=== PATIENT | female | born 1950 | race Caucasian/White ===

== ENCOUNTER 2016-12-06 07:09 | Emergency (ER) | payer OTHER ==
--- NOTE | 2016-12-06 09:12 | C.PDOC ---
History Of Present Illness 65 yr old female presents to the ER, s/p trip and fall. Patient states she landed on the right knee and right face. Patient reports she is on Xarelto. Patient denies symptoms prior fall, LOC, vision changes, nausea, vomiting, headache, dizziness, weakness or numbness. 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 Constitutional: Positive for: Other ((+) Right face pain ) Eyes: Negative for: Vision Change Gastrointestinal: Negative for: Nausea, Vomiting Musculoskeletal: Positive for: Other ((+) Right knee pain. ) Neurological: Negative for: Weakness, Numbness, Headache, Dizziness Physical Exam - Physical Exam Appears: Non-toxic, No Acute Distress Skin: Warm, Dry, No Rash Head: Atraumatic, Normacephalic Eye(s): bilateral: PERRL, EOMI, right: Other (Small hematoma above the right eye. ), left: Normal Inspection Nose: Normal Oral Mucosa: Moist Neck: Normal, Normal ROM, Supple Chest: Symmetrical, No Tenderness Cardiovascular: Rhythm Regular, No Murmur Respiratory: Normal Breath Sounds, No Rales, No Rhonchi, No Wheezing Extremity: No Calf Tenderness, Capillary Refill (<2), Other ((+) Midline surgical scar over bilateral knees. Point tenderness to the anterior aspect of the right knee. ) Pulses: Left Dorsalis Pedis: Normal, Right Dorsalis Pedis: Normal Neurological/Psych: Oriented x3, Normal Speech, Normal Motor ED Course And Treatment - Other Rad X-Ray - Right Knee X-Ray: Viewed By Me, Read By Radiologist Interpretation: Right knee three views. History: Injury. Comparison: None available. Findings: Status post right total knee arthroplasty with patellar resurfacing. Narrowing at the patellofemoral compartment with some osteophytosis noted at the inferior posterior patella. Few soft tissue calcifications noted at the anterior aspect of the proximal tibia. Small knee joint effusion. Osteophytosis noted at the lateral proximal tibia as well as some mild productive change at the lateral femoral condyle. Impression: Status post right total knee arthroplasty with patellar resurfacing. Narrowing at the patellofemoral compartment with some osteophytosis noted at the inferior posterior patella. Few soft tissue calcifications noted at the anterior aspect of the proximal tibia. Small knee joint effusion. Osteophytosis noted at the lateral proximal tibia as well as some mild productive change at the lateral femoral condyle. If pain persists, consider MRI. - CT Scan/US CT - Head Other Rad Studies (CT/US): Read By Radiologist, Radiology Report Reviewed CT/US Interpretation: PROCEDURE: CT HEAD WITHOUT CONTRAST. HISTORY: Fall. Trauma. COMPARISON: None available. TECHNIQUE: Axial computed tomography images were obtained through the head/brain without intravenous contrast. Radiation dose: Total exam DLP = 903 mGy-cm. This CT exam was performed using one or more of the following dose reduction techniques: Automated exposure control, adjustment of the mA and/or kV according to patient size, and/or use of iterative reconstruction technique. FINDINGS: HEMORRHAGE: No intracranial hemorrhage. Small focus of increased attenuation seen within the right frontal lobe on series 2, image 15 likely represents volume averaging with the adjacent cranium. Punctate radiopaque focus seen within the right frontal lobe on series 4, image 30 may represent a parenchymal calcification. Additional probable parenchymal calcification seen within the cerebellum on series 4, image 19. BRAIN: No mass effect or edema. Scattered focal lucencies in the subcortical and periventricular white matter suggestive for chronic microvascular ischemic change. Punctate calcification along the anterior falx as well as within the right basal ganglia. VENTRICLES: Unremarkable. No hydrocephalus. CALVARIUM: Question left nasal bone deformity. Clinical correlation. PARANASAL SINUSES: Unremarkable as visualized. No significant inflammatory changes. MASTOID AIR CELLS: Unremarkable as visualized. No inflammatory changes. OTHER FINDINGS: None. IMPRESSION: Chronic microvascular ischemic change. Question left nasal bone deformity. Additional findings as above. If symptoms persists, consider further evaluation with MRI. CT - Orbits Other Rad Studies (CT/US): Read By Radiologist, Radiology Report Reviewed CT/US Interpretation: CT orbits. History: Trauma. Comparison: None available. Technique: Multi-echo multiplanar sequences were performed through the orbits without the use of intravenous contrast. Subsequently, sagittal and coronal reformatted images were obtained. This CT exam was performed using one or more of the following dose reduction techniques: Automated exposure control, adjustment of the mA and/or kV according to patient size, and/or use of iterative reconstruction technique. Findings: Question left nasal bone deformity. Small lucency within the anterior midline maxilla posteriorly, nonspecific. Mild mucosal thickening of the anterior ethmoid air cells. Remainder of the visualized paranasal sinuses appear preserved. Right periorbital soft tissue swelling. Bilateral orbital globes appears preserved. Narrowing at the atlantodental interval with sclerosis and bony hypertrophy. Multilevel uncovertebral joint and facet hypertrophy. Prominent posterior disc osteophyte complex at the C5-6 level. Mucosal thickening and hypertrophy of the inferior nasal turbinates. Leftward nasal septal deviation. Impression: Question left nasal bone deformity. Small lucency within the anterior midline maxilla posteriorly, nonspecific. Mild mucosal thickening of the anterior ethmoid air cells. Right periorbital soft tissue swelling. Narrowing at the atlantodental interval with sclerosis and bony hypertrophy. Multilevel uncovertebral joint and facet hypertrophy. Prominent posterior disc osteophyte complex at the C5-6 level. Mucosal thickening and hypertrophy of the inferior nasal turbinates. Leftward nasal septal deviation. Medical Decision Making Medical Decision Making: PLAN: * CT - Head, Orbits/Facials * X-Ray - Right Knee * Tylenol PO Disposition - Disposition Referrals: [facility] Giselle Jones, [Non-Staff] - Disposition: HOME/ ROUTINE Disposition Time: 09:45 Condition: GOOD Additional Instructions: Thank you for letting us take care of you today. Your provider was Dr. Dennis. You were treated for head and knee pain. The emergency medical care you received today was directed at your acute symptoms. If you were prescribed any medication, please fill it and take as directed. It may take several days for your symptoms to resolve. Return to the Emergency Department if your symptoms worsen, do not improve, or if you have any other problems. Please contact your doctor or call one of the physicians/clinics you have been referred to that are listed on the Patient Visit Information form that is included in your discharge packet. Bring any paperwork you were given at discharge with you along with any medications you are taking to your follow up visit. Our treatment cannot replace ongoing medical care by a primary care provider (PCP) outside of the emergency department. Thank you for allowing the [facility] team to be part of your care today. Apply ice to the swollen part of your face to bring down the swelling. Follow up with your doctor or the emergency room if you have any concerns. Instructions: Head Injury (ED) Forms: [employer] (Slovenian), Work Excuse - Clinical Impression Clinical Impression: Knee contusion, Head contusion - Scribe Statement The provider has reviewed the documentation as recorded by the [facility] Provider Attestation: All medical record entries made by the Noreen[facility]kilo were at my direction and personally dictated by me. I have reviewed the chart and agree that the record accurately reflects my personal performance of the history, physical exam, medical decision making, and the department course for this patient. I have also personally directed, reviewed, and agree with the discharge instructions and disposition.
--- NOTE | 2016-12-06 09:28 | CT ---
CT orbits History: Trauma. Comparison: None available. Technique: Multi-echo multiplanar sequences were performed through the orbits without the use of intravenous contrast. Subsequently, sagittal and coronal reformatted images were obtained. This CT exam was performed using one or more of the following dose reduction techniques: Automated exposure control, adjustment of the mA and/or kV according to patient size, and/or use of iterative reconstruction technique. Findings: Question left nasal bone deformity. Small lucency within the anterior midline maxilla posteriorly, nonspecific. Mild mucosal thickening of the anterior ethmoid air cells. Remainder of the visualized paranasal sinuses appear preserved. Right periorbital soft tissue swelling. Bilateral orbital globes appears preserved. Narrowing at the atlantodental interval with sclerosis and bony hypertrophy. Multilevel uncovertebral joint and facet hypertrophy. Prominent posterior disc osteophyte complex at the C5-6 level. Mucosal thickening and hypertrophy of the inferior nasal turbinates. Leftward nasal septal deviation. Impression: Question left nasal bone deformity. Small lucency within the anterior midline maxilla posteriorly, nonspecific. Mild mucosal thickening of the anterior ethmoid air cells. Right periorbital soft tissue swelling. Narrowing at the atlantodental interval with sclerosis and bony hypertrophy. Multilevel uncovertebral joint and facet hypertrophy. Prominent posterior disc osteophyte complex at the C5-6 level. Mucosal thickening and hypertrophy of the inferior nasal turbinates. Leftward nasal septal deviation.
--- NOTE | 2016-12-06 09:42 | RAD ---
Right knee three views History: Injury. Comparison: None available. Findings: Status post right total knee arthroplasty with patellar resurfacing. Narrowing at the patellofemoral compartment with some osteophytosis noted at the inferior posterior patella. Few soft tissue calcifications noted at the anterior aspect of the proximal tibia. Small knee joint effusion. Osteophytosis noted at the lateral proximal tibia as well as some mild productive change at the lateral femoral condyle. Impression: Status post right total knee arthroplasty with patellar resurfacing. Narrowing at the patellofemoral compartment with some osteophytosis noted at the inferior posterior patella. Few soft tissue calcifications noted at the anterior aspect of the proximal tibia. Small knee joint effusion. Osteophytosis noted at the lateral proximal tibia as well as some mild productive change at the lateral femoral condyle. If pain persists, consider MRI.
[2016-12-06 09:57] VITALS: BP 160/95; PULSE 69; RESP 20; TEMP 98.1; O2SAT 97
== END 2016-12-06 10:29 | disposition home or self-care (01) ==
LOC: C.ER 07:09
DX: S00.93XA Contusion of unspecified part of head, initial encounter (principal); S80.01XA Contusion of right knee, initial encounter; W01.0XXA Fall on same level from slipping, tripping and stumbling without subsequent striking against object, initial encounter; Z79.01 Long term (current) use of anticoagulants

== ENCOUNTER 2018-02-22 14:16 | Emergency (ER) | payer OTHER ==
[2018-02-22 14:47] LABS: BASO # 0.1 K/uL (0.0-0.2); BASO % 1.1 % (0.0-2.0); EOS # 0.2 K/uL (0.0-0.7); EOS % 2.7 % (0.0-4.0); LYMPH # 2.9 K/uL (1.0-4.3); LYMPH % 33.3 % (20.0-40.0); MEAN CELL VOLUME 92.8 fL (81.0-99.0); MEAN CORPUSCULAR HEMOGLOBIN 31.6 pg (27.0-31.0); MEAN PLATELET VOLUME 9.1 fL (7.2-11.7); MONO # 0.7 K/uL (0.0-0.8); MONO % 7.7 % (0.0-10.0); NEUT # 4.9 K/uL (1.8-7.0); NEUT % 55.2 % (50.0-75.0); RBC 4.42 Mil/uL (3.80-5.20); RED CELL DISTRIBUTION WIDTH 14.3 % (11.5-14.5); WHITE BLOOD COUNT 8.8 K/uL (4.8-10.8)
[2018-02-22 15:01] VITALS: O2SAT 95
[2018-02-22 15:15] LABS: ALB/GLOB RATIO 1.2 (1.0-2.1); ALBUMIN 4.1 g/dL (3.5-5.0); ALT/SGPT 15 U/L (9-52); AST/SGOT 20 U/L (14-36); BLOOD UREA NITROGEN 13 mg/dL (7-17); CALCIUM 9.6 mg/dl (8.6-10.4); GFR NON-AFRICAN AMERICAN > 60
--- NOTE | 2018-02-22 15:28 | RAD ---
Date of service: 02/22/2018 PROCEDURE: CHEST RADIOGRAPH, 1 VIEW HISTORY: chest pain COMPARISON: None available. FINDINGS: LUNGS: The lungs are well inflated and clear. PLEURA: No pneumothorax or pleural fluid seen. CARDIOVASCULAR: The heart is normal in size. Atherosclerotic aortic arch calcifications are present. OSSEOUS STRUCTURES: No significant abnormalities. VISUALIZED UPPER ABDOMEN: Normal. OTHER FINDINGS: There is elevation of the right hemidiaphragm. IMPRESSION: No active pulmonary disease.
[2018-02-22 15:35] VITALS: BP 143/81; PULSE 91; RESP 20; TEMP 98.3
--- NOTE | 2018-02-22 16:57 | C.PDOC ---
History Of Present Illness 67-year-old female, presents to the emergency department with complaints of feeling light headed and dizzy since last night. Patient states she checked her blood pressure and it was elevated. She denies chest pain, shortness of breath, nausea/vomiting. Patient is compliant with meds. States she sees a physician office assistant every three months. No other complaints at this time. Time Seen by Provider: 02/22/18 14:27 Chief Complaint (Nursing): Dizziness/Lightheaded History Per: Patient History/Exam Limitations: no limitations Past Medical History Reviewed: Historical Data, Nursing Documentation, Vital Signs Vital Signs: Last Vital Signs Temp 98.3 F 02/22/18 15:34 Pulse 91 H 02/22/18 15:34 Resp 20 02/22/18 15:34 BP 143/81 02/22/18 15:34 Pulse Ox 95 02/22/18 15:34 - Medical History PMH: Atrial Fibrillation, HTN Family History: States: No Known Family Hx - Social History Hx Alcohol Use: Yes Hx Substance Use: No - Immunization History Hx Tetanus Toxoid Vaccination: Yes Hx Influenza Vaccination: Yes Hx Pneumococcal Vaccination: Yes Review Of Systems Constitutional: Negative for: Fever Cardiovascular: Positive for: Light Headedness. Negative for: Chest Pain Respiratory: Negative for: Shortness of Breath Gastrointestinal: Negative for: Nausea, Vomiting Neurological: Positive for: Dizziness Physical Exam - Physical Exam Appears: Non-toxic, No Acute Distress Skin: Normal Color, Warm, Dry, No Rash Head: Atraumatic, Normacephalic Eye(s): bilateral: Normal Inspection Nose: Normal Oral Mucosa: Moist Lips: Normal Appearing Neck: Normal ROM Cardiovascular: Rhythm Regular, No Murmur Respiratory: Normal Breath Sounds, No Accessory Muscle Use Gastrointestinal/Abdominal: Soft, No Tenderness Back: Normal Inspection Extremity: Normal ROM, No Deformity Neurological/Psych: Oriented x3, Normal Speech ED Course And Treatment - Laboratory Results Result Diagrams: 02/22/18 14:44 02/22/18 14:44 ECG: Interpreted By Me, Viewed By Me ECG Rhythm: Atrial Fibrillation, R BBB ECG Interpretation: No Changes From Prior (Case discussed with Dr Rivera, states A-fib is not new) Rate From EC O2 Sat by Pulse Oximetry: 95 Pulse Ox Interpretation: Normal (RA) Disposition - Disposition Referrals: Beronica Rivera MD [Staff Provider] - Disposition: HOME/ ROUTINE Disposition Time: 15:30 Condition: GOOD Additional Instructions: ZACK AREVALO, thank you for letting us take care of you today. The emergency medical care you received today was directed at your acute symptoms. If you were prescribed any medication, please fill it and take as directed. It may take several days for your symptoms to resolve. Return to the Emergency Department if your symptoms worsen, do not improve, or if you have any other problems. Please contact your doctor or call one of the physicians/clinics you have been referred to that are listed on the Patient Visit Information form that is included in your discharge packet. Bring any paperwork you were given at discharge with you along with any medications you are taking to your follow up visit. Our treatment cannot replace ongoing medical care by a primary care provider outside of the emergency department. Thank you for allowing the [facility] team to be part of your care today. Follow up with your primary care doctor tomorrow morning. She is expecting you to call her for follow up. Instructions: Dizziness, Nonvertigo, (DC) Forms: [employer] (Lithuanian), Work Excuse - Clinical Impression Clinical Impression: Dizziness - Scribe Statement The provider has reviewed the documentation as recorded by the Scribe (Scottie Olmos) Provider Attestation: All medical record entries made by the Scribe were at my direction and personally dictated by me. I have reviewed the chart and agree that the record accurately reflects my personal performance of the history, physical exam, medical decision making, and the department course for this patient. I have also personally directed, reviewed, and agree with the discharge instructions and disposition.
== END 2018-02-22 15:40 | disposition home or self-care (01) ==
LOC: C.ER 14:16
DX: R42 Dizziness and giddiness (principal)